=== PATIENT | male | born 1945 | race Caucasian/White ===

== ENCOUNTER 2018-08-29 06:59 | Day surgery (SDC) | payer BC ==
[~2018-08-29 06:59] MED LIST: ACETAMINOPHEN 1,000 MG/100 ML BTL IVPB ONE; CEFAZOLIN 2 Gram 2 GM/50 ML BAG IVPB ONE
[2018-08-29] MEDS ORDERED: FENTANYL PF 100MCG/2ML VIAL IV ONE (07:00)
[2018-08-29] MEDS ORDERED: 0.9 % SODIUM CHLORIDE 10 ML VIAL IVP ONE (07:00)
[2018-08-29] MEDS ORDERED: MIDAZOLAM HCL 2MG/2ML VIAL IV ONE (07:00)
[2018-08-29] MEDS ORDERED: HYDROCODONE/APAP 5/325MG TABLET PO ONE ×2 (07:00→10:29)
[2018-08-29] MEDS ORDERED: ONDANSETRON HCL IV 4 MG/2 ML VIAL IVP ONE (07:00)
[2018-08-29] MEDS ORDERED: DESFLURANE 240 ML BTL INH ONE (07:00)
[2018-08-29] MEDS ORDERED: ROPIVACAINE HCL (NAROPIN) /PF 5MG/ML 20ML VIAL IV ONE (07:00)
[2018-08-29] MEDS ORDERED: PROPOFOL 10 MG/ML VIAL IV ONE (07:00)
[2018-08-29] MEDS ORDERED: LIDOCAINE 2% MDV (20MG/ML) 20ML VIAL IV ONE (07:00)
[2018-08-29] MEDS ORDERED: DEXAMETHASONE 4 MG/ML 1ML VIAL IVP ONE ×2 (07:00)
[2018-08-29 07:13] LABS: BASO % 0.6 % (0-6); EOS % 3.4 % (0-6); GRAN % 56.8 % (47-80); HEMATOCRIT 45.4 % (42.0-52.0); HEMOGLOBIN 15.4 gm/dl (14.0-18.0); LYMPH % 26.8 % (16-45); MEAN CORPUSCULAR HEMOGLOBIN 30.9 pg (27-33); MEAN CORPUSCULAR HGB CONC 33.9 g/dl (32-36); MONO % 12.4 % (0-9); PLATELET COUNT 283 K/uL (130-400); RED BLOOD COUNT 4.99 M/uL (4.40-5.70); RED CELL DISTRIBUTION WIDTH 13.9 % (11.5-14.5); WHITE BLOOD COUNT W/O DIFF 5.1 K/uL (4.2-12.2)
[2018-08-29] MEDS ORDERED: RINGERS SOLUTION,LACTATED 1,000 ML IV ONE ×2 (07:15→10:08)
[2018-08-29 07:31] LABS: BLOOD UREA NITROGEN 18 mg/dL (8-23); CREATININE 0.9 mg/dL (0.7-1.2); EST GLOMERULAR FILTRATION RATE > 60 mL/min; GLUCOSE,RANDOM 136 mg/dL (74-109)
[2018-08-29] MEDS ORDERED: BUPIVACAINE 0.25% W/EPI MPF 30ML VIAL SQ ONE (09:14)
[2018-08-29] MEDS: FENTANYL PF 100MCG/2ML VIAL IVP PRN ×4 (09:39→09:58)
[2018-08-29] MEDS ORDERED: HYDROMORPHONE HCL 2 MG/ML VIAL IM ONE (09:49)
--- NOTE | 2018-08-30 08:40 | Operative Note ---
DATE OF SURGERY: 08/29/2018 SURGEON: Tirso Guerra DO PREOPERATIVE DIAGNOSIS: Incarcerated umbilical hernia. POSTOPERATIVE DIAGNOSIS: Incarcerated umbilical hernia. OPERATION: Open umbilical herniorrhaphy with mesh. PROCEDURE: The patient is a 68-year-old male who is brought to the operating room and placed in a supine position. General anesthesia was administered per the department of anesthesia. The patient's abdomen was prepped and draped in the usual fashion. At this time, adequate timeout was performed. He did receive preoperative antibiotic as well as DVT prophylaxis. At this time, a curvilinear infraumbilical incision was made. This was done after the periumbilical area was anesthetized with a total of 10 mL of 0.25% Sensorcaine with epinephrine. This incision was carried down to the anterior rectus fascia. The umbilical stalk was encircled and dissected free from the underlying hernia sac. Clean circumferential fascial edges were obtained. The hernia sac was then amputated and passed off the field. The hernia defect measured about 1.5 cm. At this time, an [address] mesh was obtained. This was placed in an intraperitoneal position with excellent overlap of the fascia. The upper skirt was sutured to the fascia with 2-0 Vicryl. The skin was tacked back down and closed with 3-0 and 4-0 Vicryl. He was taken to the recovery room in satisfactory condition. FINDINGS ON SURGERY: Incarcerated umbilical hernia repaired as above. CC: DO YANY Baron
== END 2018-08-29 13:15 | disposition home or self-care (01) ==
LOC: SUR 06:59
PROVIDERS: ATTEND Surgery
DX: K42.0 Umbilical hernia with obstruction, without gangrene (principal); I10 Essential (primary) hypertension; E78.00 Pure hypercholesterolemia, unspecified
CPT/HCPCS: 49587; 00830; 64486; 85025; 80048; J2405; J3010; J1170; J0690; J2795; 76942; J7120